=== PATIENT | male | born 1970 | race Caucasian/White ===

== ENCOUNTER 2021-03-06 19:27 | Emergency (ER) | payer SELFPAY ==
[2021-03-06] MEDS: LORazepam 1 MG Tab PO ONE (21:11)
== END 2021-03-06 23:05 | disposition home or self-care (01) ==
LOC: JP.ED 19:27
DX: I50.42 Chronic combined systolic (congestive) and diastolic (congestive) heart failure (principal); I42.9 Cardiomyopathy, unspecified; F41.1 Generalized anxiety disorder; F43.10 Post-traumatic stress disorder, unspecified; R79.1 Abnormal coagulation profile; G47.00 Insomnia, unspecified; I48.91 Unspecified atrial fibrillation; Z72.0 Tobacco use; Z79.01 Long term (current) use of anticoagulants; Z79.899 Other long term (current) drug therapy
CPT/HCPCS: 36415; 80053; 83880; 84484; 85025; 85610; 85730; 99283; 99284; A9270-GY